=== PATIENT | female | born 1970 | race Two or more races ===

== ENCOUNTER 2024-07-15 15:23 | Emergency (ER) | payer OTHER ==
[~2024-07-15] VITALS: Ht 152.4 cm; Wt 79.4 kg
[2024-07-15] MEDS ORDERED: SYNTHROID137 MCG PO (15:58)
[2024-07-15] MEDS ORDERED: SINGULAIR10 MG PO (15:58)
[2024-07-15] MEDS ORDERED: ZESTRIL20 MG PO (15:58)
[2024-07-15] MEDS ORDERED: TOPROL XL25 M1 PO (15:59)
[2024-07-15] MEDS ORDERED: ZETIA10 MG PO (15:59)
[2024-07-15] MEDS ORDERED: LIPITOR40 MG PO (15:59)
[2024-07-15] MEDS ORDERED: NORVASC10 MG PO (15:59)
[2024-07-15] MEDS ORDERED: GUAIFENESIN/DEXTROMETHORPHAN 10ML BLIST.PACK PO ONE (16:30)
[2024-07-15] MEDS ORDERED: METHYLPREDNISOLONE SOD SUCC 125 MG VIAL IV ONE (16:30)
[2024-07-15] MEDS ORDERED: ENALAPRILAT DIHYDRATE 2.5 MG/2 ML VIAL IV ONE (16:30)
[2024-07-15 17:13] LABS: HEMATOCRIT 36.4 % (36.0-45.00); HEMOGLOBIN 12.2 g/dL (12.0-15.00); MEAN CELL VOLUME 88.2 fL (80.00-100.00); MEAN CORPUSCULAR HEMOGLOBIN 29.6 pg (27.00-32.0); MEAN CORPUSCULAR HGB CONC 33.6 g/dl (32.0-36.0); PLATELET COUNT 319 K/uL (150-450); RED BLOOD COUNT 4.13 M/uL (4.00-6.00); RED CELL DISTRIBUTION WIDTH 14.1 % (11.5-14.5)
[2024-07-15] MEDS ORDERED: CLONIDINE HCL 0.1 MG TABLET PO ONE (18:45)
[2024-07-15] MEDS ORDERED: FUROsemide 40 MG/4 ML VIAL IV ONE (19:00)
[2024-07-15] MEDS ORDERED: XOPENEX CO1.25 MG/0. IH (20:39)
[2024-07-15] MEDS ORDERED: QC TUSSIN DM L118 ML PO (20:39)
[2024-07-15] MEDS ORDERED: PULMICORT1 MG/2 ML IH (20:39)
[2024-07-15] MEDS ORDERED: ZITHROMAX500 MG PO (20:39)
[2024-07-15 22:49] LABS: ABG PH 7.426 (7.35-7.45); ABG PO2 92.6 mmHg (80-100); ABG pCO2 36.6 mmHg (35-45)
[2024-07-15 22:50] LABS: BASE EXCESS -0.4 mmol/l; BICARBONATE 23.6 mmol/l (23-25); Tco2 24.7 mmol/l; allen test SATISFACTORY; o2 21 %; puncture site RADIAL RIGHT
[2024-07-15 22:53] LABS: SaO2 97.4 %
== END 2024-07-15 21:19 | disposition home or self-care (01) ==
LOC: ER 15:25
PROVIDERS: Nurse Practitioner Family
DX: I10 Essential (primary) hypertension (principal); R05.8 Other specified cough; E03.8 Other specified hypothyroidism; E78.49 Other hyperlipidemia; Z20.822 Contact with and (suspected) exposure to COVID-19

== ENCOUNTER 2025-05-08 08:41 | Outpatient (CLI) | payer OTHER ==
[~2025-05-08 08:41] MED LIST: LIPITOR40 MG PO; NORVASC10 MG PO; PULMICORT1 MG/2 ML IH; QC TUSSIN DM L118 ML PO; SINGULAIR10 MG PO; SYNTHROID137 MCG PO; TOPROL XL25 M1 PO; XOPENEX CO1.25 MG/0. IH; ZESTRIL20 MG PO; ZETIA10 MG PO; ZITHROMAX500 MG PO
== END 2025-05-08 08:46 | disposition home or self-care (01) ==
LOC: SONOGRAMA 08:41
PROVIDERS: ATTEND Pathology Anatomic Pathology & Clinical Pathology
DX: E04.1 Nontoxic single thyroid nodule (principal)

== ENCOUNTER 2025-07-01 12:00 | Day surgery (SDC) | payer OTHER ==
[2025-06-24 12:26] VITALS: BP 11/68
[~2025-07-01] VITALS: Ht 152.4 cm; Wt 81.6 kg
[~2025-07-01 12:00] MED LIST changes: +LOSARTAN POTASS50 MG PO
[2025-07-01] MEDS ORDERED: CEFAZOLIN SODIUM 1,000 MG VIAL ONE (13:10)
== END 2025-07-01 17:40 | disposition home or self-care (01) ==
LOC: CIR.AMB 12:00
PROVIDERS: ATTEND Orthopaedic Surgery Hand Surgery
DX: G56.01 Carpal tunnel syndrome, right upper limb (principal)